=== PATIENT | female | born 1990 | race Native Hawaiian/Other Pacific Islander ===

== ENCOUNTER 2018-04-21 16:58 | Emergency (ER) | payer OTHER ==
[~2018-04-21] VITALS: Ht 152.4 cm; Wt 70.3 kg
[2018-04-21 19:05] VITALS: BP 112/56; TEMP 98
== END 2018-04-21 19:05 | disposition home or self-care (01) ==
LOC: ED 16:58
DX: S00.462A Insect bite (nonvenomous) of left ear, initial encounter (principal); S50.862A Insect bite (nonvenomous) of left forearm, initial encounter; S50.861A Insect bite (nonvenomous) of right forearm, initial encounter; L50.9 Urticaria, unspecified; W57.XXXA Bitten or stung by nonvenomous insect and other nonvenomous arthropods, initial encounter
CPT/HCPCS: 96372; 99282; J2930